=== PATIENT | male | born 1960 | race African-American/Black ===

== ENCOUNTER 2017-02-11 17:19 | Emergency (ER) | payer OTHER ==
[2017-02-11 17:33] VITALS: BP 157/95; PULSE 82; TEMP 97.7; BMI 23.3
--- NOTE | 2017-02-11 17:51 | PDOC ---
History of Present Illness - General Chief Complaint: Injury Stated Complaint: FALL Time Seen by Provider: 02/11/17 17:39 - History of Present Illness Initial Comments: 02/11/17 18:44 Patient is a 56-year-old male who presents to emergency department today complaining of left foot pain. Patient states that he was carrying a bedframe down his steps when he missed a step and fell approximately 4 steps. He did not fall and hit his head. He states that his foot landed hard on the last step. He believes he fractured his foot. He rates the pain a 7 out of 10. States that he cannot put weight on the foot. Denies LOC, head trauma, neck pain, back pain, numbness and tingling in the foot, weakness in the foot. Past History - Travel Traveled outside of the country in the last 30 days: No Close contact w/someone who was outside of country & ill: No - Past Medical History Allergies/Adverse Reactions: Allergies Allergy/AdvReac Type Severity Reaction Status Date / Time No Known Allergies Allergy Verified 02/20/14 20:19 Home Medications: Ambulatory Orders Tramadol HCl 50 mg PO TID PRN #10 tablet MDD 3 02/11/17 CVA: No COPD: No - Immunization History Immunization Up to Date: Yes - Suicide/Smoking/Psychosocial Hx Smoking History: Never smoked Have you smoked in the past 12 months: No Information on smoking cessation initiated: No Hx Alcohol Use: No Drug/Substance Use Hx: No Substance Use Type: None Review of Systems - Review of Systems Able to Perform ROS?: Yes Comments:: 02/11/17 18:45 CONSTITUTIONAL: Absent: fever, chills, diaphoresis, generalized weakness, malaise, loss of appetite HEENT: Absent: rhinorrhea, nasal congestion, throat pain, throat swelling, difficulty swallowing, mouth swelling, ear pain, eye pain, visual Changes CARDIOVASCULAR: Absent: chest pain, loss of consciousness, palpitations, irregular heart rate, peripheral edema RESPIRATORY: Absent: cough, shortness of breath, dyspnea with exertion, orthopnea, wheezing, stridor, hemoptysis GASTROINTESTINAL: Absent: abdominal pain, abdominal distension, nausea, vomiting, diarrhea, constipation, melena, hematochezia GENITOURINARY: Absent: dysuria, frequency, urgency, hesitancy, hematuria, flank pain, genital pain MUSCULOSKELETAL: Present: L foot pain Absent: myalgia, arthralgia, joint swelling SKIN: Absent: rash, itching, pallor HEMATOLOGIC/IMMUNOLOGIC: Absent: easy bleeding, easy bruising, lymphadenopathy, frequent infections ENDOCRINE: Absent: unexplained weight gain, unexplained weight loss, heat intolerance, cold intolerance NEUROLOGIC: Absent: headache, focal weakness or paresthesias, dizziness, unsteady gait, seizure, mental status changes, bladder or bowel incontinence PSYCHIATRIC: Absent: anxiety, depression, suicidal or homicidal ideation, hallucinations. Is the patient limited Malagasy proficient: No *Physical Exam - Vital Signs Last Vital Signs Temp Pulse Resp BP Pulse Ox 97.7 F 82 16 157/95 98 02/11/17 17:25 02/11/17 17:25 02/11/17 17:25 02/11/17 17:25 02/11/17 17:25 - Physical Exam Comments: 02/11/17 18:46 GENERAL: The patient is awake, alert, and fully oriented, in no acute distress. HEAD: Normal with no signs of trauma. EYES: Pupils equal, round and reactive to light, extraocular movements intact, sclera anicteric, conjunctiva clear. EXTREMITIES: Normal range of motion, no edema. TTP of L 1st toe, L 1st proximal phalange Distal pulses posterior tibialis intact 2+ b/l. Gross sensation intact NEUROLOGICAL: Normal speech, walking with limp favoring L side PSYCH: Normal mood, normal affect. SKIN: Warm, Dry, normal turgor, no rashes or lesions noted. Medical Decision Making - Medical Decision Making 02/11/17 17:48 Patient is a 56-year-old male with no past medical history presents emergency Department after falling. Patient has significant tenderness over the left first phalange he. We will obtain x-rays of the foot at this time to rule out fracture. Will give Motrin for pain. 02/11/17 18:51 X-ray shows positive fracture for the first distal phalanges, possible proximal phalange fracture as well. We will tracey tape and put in hard boot shoe. We'll recommend or so referral in discharge home at this time. *DC/Admit/Observation/Transfer Diagnosis at time of Disposition: Phalanges fracture, foot Qualifiers: Encounter type: initial encounter Toe: great toe Fracture type: closed Phalanx : distal Fracture alignment: nondisplaced Laterality: left Qualified Code(s): S92.425A - Nondisplaced fracture of distal phalanx of left great toe, initial encounter for closed fracture - Discharge Dispostion Disposition: HOME Condition at time of disposition: Good Admit: No - Prescriptions Prescriptions: Tramadol HCl 50 mg PO TID PRN #10 tablet MDD 3 PRN Reason: Break through pain - Referrals Referrals: Moses Norwood MD [Staff Physician] - - Patient Instructions Printed Discharge Instructions: DI for Foot Fracture Additional Instructions: You have a foot fracture. Your left first toe is broken. Your place and tracey tape and a hard shoe. Please leave these on until you see the orthopedist. Please use the crutches and avoid putting weight on her foot. Please take Motrin 800 mg 3 times a day not to exceed 3000 mg a day. Your also prescribed tramadol as needed for breakthrough pain. Keep your foot elevated when resting at home. Please follow-up with [facility] tomorrow. Return to the emergency department if you have increased pain, numbness and tingling in the foot, or any changes in your symptoms. - Post Discharge Activity
[2017-02-11] MEDS ORDERED: IBUPROFEN 400 MG TABLET (FP) PO ONE ×2 (17:55→18:00)
[2017-02-11] MEDS ORDERED: traMADol HCL 50 MG TABLET ONE (18:58)
[2017-02-11] MEDS ORDERED: traMADol HCL 50 MG TABLET PO ONE (19:01)
== END 2017-02-11 19:09 | disposition home or self-care (01) ==
LOC: JER 17:19 → JERFT 17:19
DX: S92.425A Nondisplaced fracture of distal phalanx of left great toe, initial encounter for closed fracture (principal); W10.8XXA Fall (on) (from) other stairs and steps, initial encounter; Y93.89 Activity, other specified; Y92.89 Other specified places as the place of occurrence of the external cause; Y99.8 Other external cause status
CPT/HCPCS: 73630-TC-LT; 99281-25